=== PATIENT | male | born 1950 | race Caucasian/White ===

== ENCOUNTER 2022-08-16 09:21 | Outpatient (CLI) | payer OTHER, SELFPAY | END 2022-08-16 09:22 | disposition home or self-care (01) | LOC: NFLDREF 22:12 | PROVIDERS: PCP Internal Medicine; Referring Provider Internal Medicine; Visit Provider Internal Medicine | DX: I10 Essential (primary) hypertension (principal); Z13.6 Encounter for screening for cardiovascular disorders; Z12.5 Encounter for screening for malignant neoplasm of prostate | CPT/HCPCS: 80053; 80061; 84153 ==

== ENCOUNTER 2023-10-21 09:53 | Outpatient (CLI) | payer OTHER, SELFPAY ==
--- OUTSIDE RECORDS SUMMARY | 2023-10-23 03:25 | XMS_ITS | Clinical Summary ---
Author Organization [facility] Address [place], [place] [address] Care Team Providers Care Able Bodied Watchman Name Role Phone Pcp, No Primary Care Provider Unavailabl e Allergies Active Allergy Reactions Criticality Noted Date Comments Oxycodone Hallucinations High 06/24/2021 Tree Pollen-Mountain [place] Shortness Of Breath Low 06/24/2021 Medications Medication Sig Dispensed Refills Start Date End Date Status albuterol HFA (PRO-AIR; VENTOLIN; PROVENTIL) 90 mcg/actuation inhaler 06/25/2021 Active lisinopril-hydrochlorothiazide, 20-25 mg, (PRINZIDE, ZESTORETIC) 20-25 mg per tablet 08/04/2021 Activ e fluticasone propion-salmeteroL (ADVAIR) 250-50 mcg/Dose diskus inhaler 08/04/2021 Active Glucosamine-Chondroitin 250-200 mg tablet Daily Active multivitamin capsule Daily Acti ve Social History Tobacco Use Types Packs/Day Years Used Date Smoking Tobacco: Every Day Smokeless Tobacco: Never Sex and Gender Information Value Date Recorded Sex Assigned at Not on file Gender Identity Not on file Sexual Orientation Not on file Obstetrics History Last Filed Vital Signs Vital Sign Reading Time Taken Comments Blood Pressure 152/94 09/16/2021 9:10 AM CDT Pulse 99 09/16/2021 9:10 AM CDT Temperature - - Respiratory Rate - - Oxygen Saturation 97% 09/16/2021 9:10 AM CDT Inhaled Oxygen Concentration - - Weight 79.2 kg (174 lb 9.6 oz) 09/16/2021 9:10 A M CDT Height - - Body Mass Index - - Plan of Treatment Health Maintenance Due Date Last Done Comments Tdap 10/19/1962 Depression screening for age 12+ 1963 BMI (ht and wt on same day) for age 18+ 10/19/1969 Hepatitis C screening for ag e 18-79 10/19/1969 Tetanus booster 1971 Colonoscopy through age 75 10/19/1996 Lipids for age 45-75 10/19/1996 Zoster (shingles) series for age 50+ (1 of 2) 10/19/2001 Medicare Wellness for age 65+ 10/19/2016 Pneumococcal series for age 65+ (1 of 1 - PCV) 10/19/2016 COVID-19 vaccine series (2022- season) 2022 08/04/2021, 01/26/2021, 06/26/2020, Additional history exists Influenza for age 65+ 12/25/2023 Care Teams Able Bodied Watchman Relationship Specialty Start Date End Date Pcp, No . PCP - General 09/16/21
== END 2023-10-21 09:54 | disposition home or self-care (01) ==
LOC: NFLDREF 10-23 03:23
PROVIDERS: PCP Internal Medicine; Referring Provider Internal Medicine; Visit Provider Internal Medicine
DX: I10 Essential (primary) hypertension (principal); Z12.5 Encounter for screening for malignant neoplasm of prostate; Z13.6 Encounter for screening for cardiovascular disorders
CPT/HCPCS: 80053; 80061; G0103

== ENCOUNTER 2023-11-24 18:24 | Emergency (ER) | payer OTHER, SELFPAY ==
[2023-11-24 19:01] VITALS: BP 149/94; PULSE 95; RESP 18; TEMP 36.1; O2SAT 94; BMI 26.6
--- NOTE | 2023-11-24 19:15 | CRLHL7_ITS ---
For Patients: As a result of the Cures Act, medical imaging exams and procedure reports are released immediately into your electronic medical record. You may view this report before your referring provider. If you have questions, please contact your health care provider. INDICATION: Shortness of breath TECHNIQUE: Chest radiograph 2 views COMPARISON: 09/29/2022 FINDINGS: Mediastinum: The mediastinum is normal in appearance. The heart silhouette is normal in size and morphology. Lung: Both lungs are unremarkable in appearance. No sign of pleural effusion seen. No pneumothorax is identified. Bone and Soft tissue: Remote fractures of the right apical ribs and right clavicle are noted without change. IMPRESSION: 1. No acute cardiopulmonary disease is seen. Dictated by Bradley Velazquez MD @ 11/24/2023 8:40:04 PM Dictated by: Bradley Velazquez MD @ 11/24/2023 20:40:07 (Electronically Signed)
[2023-11-24] MEDS: IPRAT-ALBUT 0.5-2.5 MG/3 ML NEB 1 NEB IH (19:33)
[2023-11-24 19:50] LABS: PCR FLU A Negative PCR FLU A (Negative); PCR FLU B Negative PCR FLU B (Negative); PCR RSV Negative PCR RSV (Negative); SARS PCR* Negative SARS-CoV-2 (Negative)
--- OUTSIDE RECORDS SUMMARY | 2023-11-24 19:54 | XMS_ITS | Clinical Summary ---
Author Organization [facility] Address [place], [place] [address] Care Team Providers Care Info Analyst Name Role Phone Pcp, No Primary Care Provider Unavailabl e Allergies Active Allergy Reactions Criticality Noted Date Comments Oxycodone Hallucinations High 06/24/2021 Tree Pollen-Mountain [place] Shortness Of Breath Low 06/24/2021 Medications Medication [...] Influenza for age 65+ 12/25/2023 Care Teams Info Analyst Relationship Specialty Start Date End Date Pcp, No . PCP - General 09/16/21
--- NOTE | 2023-11-24 20:24 | ED_ITS ---
HPI - General Adult General Chief complaint: Cough Stated complaint: shortness of breath, cough Time Seen by Provider: 11/24/23 19:02 Source: patient Mode of arrival: ambulatory Limitations: no limitations History of Present Illness HPI narrative: 73-year-old male coming in today completes earned about shortness of breath and cough going on for approximately 1 month. Patient states that he does have COPD and he takes Advair b.i.d.. He also takes a rescue albuterol inhaler which he has been using daily. He denies fevers or chills. Sometimes he has difficulty sleeping because the cough keeps him up at night and shortness of breath worsens when he lays down. He does continue to play golf during the day and that does not cause chest pain or increasing shortness of breath. In fact, he states that he feels better when he is outside or when he is not at home. He does have 2 cats at home the could certainly be contributing to his problems. He states that his shortness of breath it is relieved when he takes his Advair but it quickly wears off. Patient does continue to smoke cigarettes. Related Data Previous Rx's ?Medication ?Instructions ?Recorded albuterol sulfate 90 mcg/actuation 2 puff inhalation Q4H PRN 10/24/23 aerosol inhaler shortness of breath or wheezing #6.7 grams albuterol sulfate 90 mcg/actuation 2 puff inhalation Q4H PRN 10/24/23 aerosol inhaler (Ventolin HFA) shortness of breath or wheezing #8.5 grams azithromycin 250 mg tablet See Rx Instructions PO .COMPLEX #6 10/24/23 (Zithromax Z-Raymond) tabs fluticasone 250 mcg-salmeterol 50 1 inh inhalation BID #180 ea 10/24/23 mcg/dose blistr powdr for inhalation (Advair Diskus) lisinopril 20 1 tab PO QDAY #90 tabs 10/24/23 mg-hydrochlorothiazide 25 mg tablet prednisone 20 mg tablet 20 mg PO DIRECTED 9 days #18 11/24/23 tabs Allergies Allergy/AdvReac Type Severity Reaction Status Date / Time oxycodone Allergy Severe Hallucinati Verified 10/24/23 14:58 ng Mountain cedar tree Allergy Mild Difficulty Uncoded 10/24/23 14:58 Breathing Review of Systems Status of ROS: Reports: 10 or more systems reviewed and unremarkable except as noted in History and below PFSH PFSH Medical History Tobacco use ?Z72.0 - Tobacco use (ICD-10) Social History What is your current living situation?: I presently have a place to live Problems where you live: no known problems In the past 12 months, utilities in danger of being shut off: no In past 12 months, lack of transportation kept you from medical appts, meetings, work, or getting things needed for daily living: no In the past 12 mos, have been you worried that your food would run out before you had money to buy more?: never true In the past 12 mos, the food you bought just didn't last and you didn't have money to buy more?: never true Smoking Status: Current every day smoker How often does anyone, including family, friends and others, physically hurt you : never How often does anyone, including family, friends and others, insult or talk down to you: never How often does anyone, including family, friends and others, threaten you with harm: never How often does anyone, including family, friends and others, scream or curse at you: never Little interest or pleasure in doing things: not at all Feeling down, depressed, or hopeless: not at all Exam Narrative: Exam Narrative: Well-nourished well-developed patient in no acute distress. Alert and oriented. Answers questions appropriately. Mood and affect are appropriate. Thoughts are goal oriented and rational. No tangential or magical thinking noted. Patient speaks in full sentences without needing to catch his breath. HEENT: Normocephalic atraumatic. Pupils are equally round reactive to light. Extraocular muscles are intact. Conjunctivae are moist without any icterus noted. Moist mucous membranes. Posterior pharynx is normal. Neck is soft without any lymphadenopathy or thyromegaly. No masses are appreciated. Cardiovascular: Heart is regular rate and rhythm S1 and S2 are present without any murmurs. Lungs: Diffuse wheezing bilaterally. Extremities: Bilateral lower extremities are without edema. Skin: Well perfused without any obvious rashes. Const: Vital Signs, click to edit/add: Vital Signs - 24 hr 11/24/23 19:01 Temperature 96.9 F L Pulse Rate [Right Pulse Oximeter] 95 Respiratory Rate 18 Blood Pressure [Ri ght Upper Arm] 149/94 H Pulse Oximetry 94 Oxygen Delivery Me thod Room Air Course Course ED Course: In the ED today patient had a DuoNeb which helped his symptoms. He also had a dose of oral prednisone 50 mg. Chest x-ray read by me, does not show any acute infiltrates. EKG shows normal sinus rhythm with a pulse of 78. Triple swab negative. Repeat examination after the DuoNeb reveals that the patient's wheezing has completely resolved and he feels significantly better. Vital Signs Vital signs: Initial Vital Signs Temperature 96.9 F L 11/24/23 19:01 Temperature Source Temporal Artery Scan 11/24/23 19:01 Pulse Rate 95 11/24/23 19:01 Pulse Rhythm Regular 11/24/23 19:01 Pulse Strength 3+ Normal 11/24/23 19:01 Respiratory Rate 18 11/24/23 19:01 Blood Pressure 149/94 H 11/24/23 19:01 Blood Pressure Mean 112 H 11/24/23 19:01 Blood Pressure Position Sitting 11/24/23 19:01 Pulse Oximetry 94 11/24/23 19:01 Oxygen Delivery Method Room Air 11/24/23 19:01 Vital Signs Temperature 96.9 F L 11/24/23 19:01 Pulse Rate 95 11/24/23 19:01 Respiratory Rate 18 11/24/23 19:01 Blood Pressure 149/94 H 11/24/23 19:01 Pulse Oximetry 94 11/24/23 19:01 Oxygen Delivery Method Room Air 11/24/23 19:01 Temperature 96.9 F L 11/24/23 19:01 Pulse Rate 95 11/24/23 19:01 Respiratory Rate 18 11/24/23 19:01 Blood Pressure 149/94 H 11/24/23 19:01 Pulse Oximetry 94 11/24/23 19:01 Oxygen Delivery Method Room Air 11/24/23 19:01 Medications Administered Medications: Discontinued Medications Generic Name Dose Route Start Last Admin Trade Name Freq PRN Reason Stop Dose Admin Albuterol/Ipratropium 1 neb 11/24/23 19:15 11/24/23 19:33 Iprat-Albut 0.5-2.5 Mg/3 Ml Neb 11/24/23 19:16 1 neb ONCE ONE Administration Medical Decision Making MDM Narrative Medical decision making narrative: [age] year male with progressively worsening COPD. Patient will be sent home on prednisone taper today. He is to follow up with primary care provider this next week to discuss changing his daily regimen. Lab Data Lab results reviewed: Yes I reviewed the patient's lab results Labs: Lab Results 11/24/23 Range/Units 17:08 SARS-CoV-2 (PCR) Negative SARS-CoV-2 (Negative) Influenza Type A (PCR) Negative PCR FLU A (Negative) Influenza Type B (PCR) Negative PCR FLU B (Negative) RSV (PCR) Negative PCR RSV (Negative) Imaging Data Chest x-ray: Attestation: I have reviewed the pertinent imaging results. Radiologist's impression: TECHNIQUE: Chest radiograph 2 views COMPARISON: 09/29/2022 FINDINGS: Mediastinum: The mediastinum is normal in appearance. The heart silhouette is normal in size and morphology. Lung: Both lungs are unremarkable in appearance. No sign of pleural effusion seen. No pneumothorax is identified. Bone and Soft tissue: Remote fractures of the right apical ribs and right clavicle are noted without change. IMPRESSION: 1. No acute cardiopulmonary disease is seen. Discharge Plan Discharge Clinical Impression: COPD (chronic obstructive pulmonary disease) Patient Disposition: Home, Self-Care Condition: Stable Additional Instructions: Follow-up with primary care provider this coming week to discuss changes to your daily COPD treatment. Prescriptions: New prednisone 20 mg tablet 20 mg PO DIRECTED 9 Days Qty: 18 0RF Rx Instructions: 60 mg p.o. daily for 3 days (3 tablets daily on day 1-3), 40 mg daily for 3 days (2 tablets daily on days 4-6), 20 mg daily for 3 days (1 tablet daily on days 7-9). No Action lisinopril-hydrochlorothiazide 20-25 mg tablet 1 tab PO QDAY Qty: 90 2RF fluticasone propion-salmeterol [Advair Diskus] 250-50 mcg/dose blister with device 1 inh inhalation BID Qty: 180 2RF albuterol sulfate 90 mcg/actuation HFA aerosol inhaler 2 puff inhalation Q4H PRN (Reason: shortness of breath or wheezing) Qty: 6.7 11RF albuterol sulfate [Ventolin HFA] 90 mcg/actuation HFA aerosol inhaler 2 puff inhalation Q4H PRN (Reason: shortness of breath or wheezing) Qty: 8.5 0RF azithromycin [Zithromax Z-Raymond] 250 mg tablet See Rx Instructions PO .COMPLEX Qty: 6 0RF Rx Instructions: For 250 mg dose pack: take 500 mg today (day 1), then 250 mg for 4 days (days 2-5) PO Follow Up/Referrals: Jorge A Palacios MD [Primary Care Provider] - Stand Alone Forms: [employer] Info Instructions
== END 2023-11-24 21:04 | disposition home or self-care (01) ==
PROVIDERS: Emergency Provider Family Medicine; PCP Internal Medicine
DX: J44.9 Chronic obstructive pulmonary disease, unspecified (principal)
CPT/HCPCS: 71046; 87631; 99284

== ENCOUNTER 2023-12-21 09:30 | Outpatient (CLI) | payer OTHER, SELFPAY ==
--- OUTSIDE RECORDS SUMMARY | 2023-12-21 09:32 | XMS_ITS | Clinical Summary ---
Author Organization [facility] Address [place], [place] [address] Care Team Providers Care Captain/Check Airman Name Role Phone Pcp, No Primary Care Provider Unavailabl e Allergies Active Allergy Reactions Criticality Noted Date Comments Oxycodone Hallucinations High 06/24/2021 Tree Pollen-Mountain [place] Shortness Of Breath Low 06/24/2021 Medications Medication [...] Influenza for age 65+ 12/25/2023 Care Teams Captain/Check Airman Relationship Specialty Start Date End Date Pcp, No . PCP - General 09/16/21
--- NOTE | 2023-12-21 10:00 | CRLHL7_ITS ---
For Patients: As a result of the Century Cures Act, medical imaging exams and procedure reports are released immediately into your electronic medical record. You may view this report before your referring provider. If you have questions, please contact your health care provider. INDICATION: Lung cancer screening. TECHNIQUE: Noncontrast CT images of the chest. COMPARISON: CT chest 03/06/2016. FINDINGS: Calcified granulomas in both lungs. No focal consolidation, pleural effusion, or pneumothorax. Mild to moderate upper lobe predominant centrilobular emphysema. No pulmonary nodules peribronchial wall thickening. The heart size is normal. No pericardial effusion. Coronary artery atherosclerotic calcifications. No mediastinal or hilar lymphadenopathy. Probable right renal cyst. Colonic diverticulosis. Multilevel thoracic spondylosis. No aggressive osseous lesions. Diffuse idiopathic skeletal hyperostosis. IMPRESSION: 1. No lung nodules or masses. Lung rads category 1, negative. Continue annual screening with low-dose chest CT in 12 months. 2. Pulmonary emphysema. Please note that all CT scans at this facility use dose modulation, iterative reconstruction, and/or weight-based dosing when appropriate to reduce radiation dose to as low as reasonably achievable. Dictated by Jerry Dunn MD @ 12/21/2023 1:46:41 PM (Electronically Signed)
== END 2023-12-21 09:31 | disposition home or self-care (01) ==
LOC: CT 09:30
PROVIDERS: PCP Internal Medicine; Visit Provider Internal Medicine
DX: Z12.2 Encounter for screening for malignant neoplasm of respiratory organs (principal); F17.210 Nicotine dependence, cigarettes, uncomplicated; J43.8 Other emphysema
CPT/HCPCS: 71271

== ENCOUNTER 2024-11-28 08:00 | Outpatient (CLI) | payer OTHER, SELFPAY | END 2024-11-28 08:01 | disposition home or self-care (01) | LOC: NFLDREF 11-29 16:22 | PROVIDERS: PCP Internal Medicine; Referring Provider Internal Medicine; Visit Provider Internal Medicine | DX: I10 Essential (primary) hypertension (principal); E78.5 Hyperlipidemia, unspecified; Z13.9 Encounter for screening, unspecified; Z12.5 Encounter for screening for malignant neoplasm of prostate | CPT/HCPCS: 80053; 80061; G0103 ==

== ENCOUNTER 2024-12-26 08:35 | Outpatient (CLI) | payer OTHER, SELFPAY ==
--- NOTE | 2024-12-26 09:00 | CRLHL7_ITS ---
For Patients: As a result of the Cures Act, medical imaging exams and procedure reports are released immediately into your electronic medical record. You may view this report before your referring provider. If you have questions, please contact your health care provider. INDICATION: Lung cancer screening. History of smoking. High risk patient with greater than 25 pack-year smoking history. TECHNIQUE: Low-dose lung cancer screening non-contrast CT chest. Dose reduction techniques were used. COMPARISON: 12/21/2023 FINDINGS: NODULES: Stable small bilateral calcified pulmonary nodules. LUNGS AND PLEURA: Emphysema. MEDIASTINUM: No adenopathy. CORONARY ARTERY CALCIFICATION: Mild. LIMITED UPPER ABDOMEN: Right renal cyst again noted. MUSCULOSKELETAL: No fracture. Degenerative changes. IMPRESSION: Negative for lung cancer screening purposes. LUNG-RADS CATEGORY: 2: Benign. RADIOLOGIST RECOMMENDATION: Continue annual screening, if eligible, with low-dose CT chest in 12 months. Please note that all CT scans at this facility use dose modulation, iterative reconstruction, and/or weight-based dosing when appropriate to reduce radiation dose to as low as reasonably achievable. Dictated by Edwin Gar MD @ 12/26/2024 12:07:37 PM (Electronically Signed)
== END 2024-12-26 08:36 | disposition home or self-care (01) ==
LOC: CT 08:35
PROVIDERS: PCP Internal Medicine; Visit Provider Internal Medicine
DX: Z12.2 Encounter for screening for malignant neoplasm of respiratory organs (principal); Z72.0 Tobacco use
CPT/HCPCS: 71271